=== PATIENT | female | born 1945 | race Caucasian/White ===

== ENCOUNTER → 2019-05-21 | Outpatient (CLI) | payer MEDICARE, OTHER ==
--- NOTE | 2019-05-21 13:14 | PCVCIMAG ---
APPROVED REPORT Study performed: 05/21/2019 11:11:59 EXAM: Comprehensive 2D, Doppler, and color-flow Echocardiogram Patient Location: Echo lab Room #: 3Status: routine BSA: 1.54 HR: 60 bpmBP: 122/82 mmHg Rhythm: NSR Other Information Study Quality: Good Risk Factors: Cardiac Risk Factors: FHX of CAD Indications Abnormal ECG 2D Dimensions IVSd: 5.79 (7-11mm)LVOT Diam: 18.58 (18-24mm) LVDd: 38.48 mm PWd: 7.46 (7-11mm)Ascending Ao: 30.95 (22-36mm) LVDs: 26.76 (25-40mm) Left Atrium: 30.64 (27-40mm) Aortic Root: 25.04 mm LV Single Plane 4CH: 57.38 % LV Single Plane 2CH: 51.71 % Biplane EF: 54.6 % Volumes Left Atrial Volume (Systole) Single Plane 4CH: 47.24 mLSingle Plane 2CH: 47.72 mL Biplane LA Volume: 48.00 mLLA ESV Index: 31.00 mL/m2 Aortic Valve AoV Peak Felix.: 1.42 m/s AO Peak Gr.: 8.09 mmHgLVOT Max P.51 mmHg LVOT Max V: 0.86 m/s ALFIE Vmax: 1.65 cm2 AI Vmax: 4.17 m/s AI [place]: 2.22 m/s2 AI PHT: 543.37 ms Mitral Valve E/A Ratio: 0.8 MV Decel. Time: 166.81 ms MV E Max Felix.: 0.69 m/s MV A Felix.: 0.91 m/s IVRT: 83.04 ms TDI E/Lateral E': 6.90E/Medial E': 11.50 Medial E' Felix.: 0.06 m/s Lateral E' Felix.: 0.10 m/s Pulmonary Valve PV Peak Felix.: 0.70 m/sPV Peak Gr.: 1.98 mmHg Pulmonary Vein P Vein S: 0.66 m/sP Vein A: 0.24 m/s P Vein D: 0.37 m/sP Vein A Dur.: 100.3 msec P Vein S/D Ratio: 1.78 Tricuspid Valve TR Peak Felix.: 2.23 m/s TR Peak Gr.: 19.97 mmHg TV Vmax: 0.56 m/sPA Pressure: 27.00 mmHg Left Ventricle The left ventricle is normal size. There is normal LV segmental wall motion. There is normal left ventricular wall thickness. Left ventricular systolic function is normal. The left ventricular ejection fraction is within the normal range. LVEF is 55%. Grade I - abnormal relaxation pattern. Right Ventricle The right ventricle is normal size. The right ventricular systolic function is normal. Atria The left atrium size is normal. The right atrium size is normal. Aortic Valve Aortic valve is trileaflet. Mild aortic valve sclerosis. Mild to moderate aortic regurgitation. There is no aortic valvular stenosis. Mitral Valve The mitral valve is normal in structure. There is no mitral valve regurgitation noted. No evidence of mitral valve stenosis. Tricuspid Valve The tricuspid valve is normal in structure. Trace tricuspid regurgitation with a PA pressureof 27 mmHg. Pulmonic Valve The pulmonary valve is normal in structure. There is no pulmonic valvular regurgitation. Great Vessels The aortic root is normal in size. Aortic arch is normal in caliber. The ascending aorta is normal in size. IVC is normal in size and collapses >50% with inspiration. Pericardium There is no pericardial effusion. There is no pleural effusion. <Conclusion> The left ventricle is normal size. LVEF is 55%. Grade I - abnormal relaxation pattern. The right ventricle is normal size. The left atrium size is normal. Aortic valve is trileaflet. Mild aortic valve sclerosis. Mild to moderate aortic regurgitation. There is no mitral valve regurgitation noted. Trace tricuspid regurgitation with a PA pressureof 27 mmHg. The aortic root is normal in size. There is no pericardial effusion.
== END | disposition home or self-care (01) ==
LOC: PCVCIMAG 16:06
PROVIDERS: ATTEND Hospitalist
DX: R94.31 Abnormal electrocardiogram [ECG] [EKG] (principal); I35.1 Nonrheumatic aortic (valve) insufficiency; I35.8 Other nonrheumatic aortic valve disorders; Z82.49 Family history of ischemic heart disease and other diseases of the circulatory system
CPT/HCPCS: 93306